=== PATIENT | female | born 1960 | race Hispanic/Latino ===

== ENCOUNTER 2018-06-22 17:04 | Emergency (ER) | payer OTHER ==
[~2018-06-22] VITALS: Ht 154.9 cm; Wt 84.8 kg
--- OUTSIDE RECORDS SUMMARY | 2018-06-22 17:07 | XMS REPORT | Clinical Summary ---
Author Author [facility] Address Unknown Phone Unavailable Care Team Providers Care Room Manager Name Role Phone Nikolay Means PCP Allergies Comments Active Allergy Reactions Severity Noted Date Increased HR Pioglitazone High 12/23/2012 Iodinated Contrast- Oral Anaphylaxis High 01/06/2017 And Iv Dye Medications End Date Status Medication Sig Dispensed Refills Start Date Active pregabalin (LYRICA) 50 MG Take 50 mg by 0 capsule mouth daily. Active enalapril (VASOTEC) 10 MG Take 10 mg by 0 tablet mouth daily. Active citalopram (CELEXA) 20 MG Take 20 mg by 0 tablet mouth daily. Active metFORMIN (GLUCOPHAGE) Take 850 mg 0 850 MG tablet by mouth 3 (three) times daily with meals. Active glyBURIDE (DIABETA) 5 MG Take 10 mg by 0 tablet mouth 2 (two) times daily. Active clobetasol (TEMOVATE) Apply 0 0.05 % ointment topically 2 8 (two) times daily . Active linagliptin (TRADJENTA) 5 Take 1 tablet 30 tablet 0 mg Tab (5 mg total) 8 by mouth daily. 06/04/2018 Discontinued glyBURIDE-metFORMIN Take 2 0 (GLUCOVANCE) 5-500 mg per tablets by tablet mouth 2 (two) times daily with breakfast and dinner. 06/04/2018 Discontinued enalapril (VASOTEC) 5 MG Take 5 mg by 0 tablet mouth daily. 06/04/2018 Discontinued linagliptin 5 mg Tab Take 5 mg by 0 mouth daily. 06/04/2018 Discontinued pregabalin (LYRICA) 75 MG Take 75 mg by 0 capsule mouth 2 (two) times daily. 06/04/2018 Discontinued meloxicam (MOBIC) 15 MG Take 15 mg by 0 tablet mouth daily. 06/04/2018 Discontinued citalopram (CELEXA) 10 MG Take 10 mg by 0 tablet mouth daily. 06/04/2018 Discontinued simvastatin (ZOCOR) 20 MG Take 20 mg by 0 tablet mouth nightly. 06/04/2018 Discontinued aspirin 81 MG EC tablet Take 81 mg by 0 mouth daily. 06/04/2018 Discontinued celecoxib (CELEBREX) 100 Take 100 mg 0 03/18/201 MG capsule by mouth 2 8 (two) times daily. Active Problems Problem Noted Date Chest pain, unspecified type 01/06/2017 Diabetes mellitus 02/28/2016 HTN (hypertension) 02/28/2016 Hypokalemia 02/28/2016 Numbness and tingling 02/27/2016 Encounters Care Team Description Date Type Specialty Juan Kraft Jr., MD Hyperglycemia (Primary Dx); Type 2 diabetes mellitus without complication, without long-term current use of insulin ([facility]) 06/04/2018 Emergency Emergency Medicine 02/25/2018 Emergency Emergency Medicine - 02/26/2018 Benito Cano MD Viral illness (Primary Dx); Chills (without fever); Urinary frequency 02/08/2018 Emergency Emergency Medicine 11/14/2017 Emergency Emergency Medicine after 06/21/2017 Social History Date Tobacco Use Types Packs/Day Years Used Never Smoker Smokeless Tobacco: Never Used Alcohol Use Drinks/Week oz/Week Comments No Sex Assigned at Date Recorded Not on file Industry Job Start Date Occupation Not on file Not on file Not on file Travel End Travel History Travel Start No recent travel history available. Last Filed Vital Signs Time Taken Vital Sign Reading 06/04/2018 11:50 AM CHILD PROTECTIVE INVESTIGATOR Blood Pressure 118/60 06/04/2018 11:50 AM CHILD PROTECTIVE INVESTIGATOR Pulse 65 06/04/2018 11:50 AM CHILD PROTECTIVE INVESTIGATOR Temperature 36.8 C (98.3 F) 06/04/2018 11:50 AM CHILD PROTECTIVE INVESTIGATOR Respiratory Rate 14 06/04/2018 11:50 AM CHILD PROTECTIVE INVESTIGATOR Oxygen Saturation 97% - Inhaled Oxygen - Concentration 06/04/2018 10:57 AM CHILD PROTECTIVE INVESTIGATOR Weight 80.3 kg (177 lb) 02/25/2018 7:09 PM CDT Height 154.9 cm (5' 1") 06/04/2018 10:57 AM CHILD PROTECTIVE INVESTIGATOR Body Mass Index 33.44 Plan of Treatment Not on file Procedures Comments Procedure Name Priority Date/Time Associated Diagnosis CBC W/PLT COUNT & AUTO STAT 06/04/2018 DIFFERENTIAL 11:11 AM CHILD PROTECTIVE INVESTIGATOR BASIC METABOLIC PANEL (7) STAT 06/04/2018 11:11 AM CHILD PROTECTIVE INVESTIGATOR CBC W/PLT COUNT & AUTO STAT 06/04/2018 DIFFERENTIAL 11:11 AM CHILD PROTECTIVE INVESTIGATOR POCT-GLUCOSE METER Routine 06/04/2018 11:04 AM CHILD PROTECTIVE INVESTIGATOR CBC W/PLT COUNT & AUTO STAT 02/25/2018 DIFFERENTIAL 7:44 PM CDT CBC W/PLT COUNT & AUTO STAT 02/25/2018 DIFFERENTIAL 7:44 PM CDT LIPASE STAT 02/25/2018 7:44 PM CDT AMYLASE STAT 02/25/2018 7:44 PM CDT HEPATIC FUNCTION PANEL STAT 02/25/2018 7:44 PM CDT BASIC METABOLIC PANEL (7) STAT 02/25/2018 7:44 PM CDT URINALYSIS W/ MICROSCOPIC STAT 02/08/2018 12:24 PM CDT XR CHEST 1 VIEW STAT 02/08/2018 PORTABLE/BEDSIDE 11:49 AM CDT CBC W/PLT COUNT & AUTO STAT 02/08/2018 DIFFERENTIAL 11:44 AM CDT CBC W/PLT COUNT & AUTO STAT 02/08/2018 DIFFERENTIAL 11:44 AM CDT BASIC METABOLIC PANEL (7) STAT 02/08/2018 11:44 AM CDT after 06/21/2017 Results * CBC with platelet count + automated diff (06/04/2018 11:11 AM CHILD PROTECTIVE INVESTIGATOR) Only the most recent of 3 results within the time period is included. WBC 5.8 3.5 - 10.5 K/L [facility] RBC 4.38 3.93 - 5.22 M/L [facility] Hemoglobin 13.8 11.2 - 15.7 GM/DL [facility] Hematocrit 41.7 34.1 - 44.9 % [facility] MCV 95.2 (H) 79.4 - 94.8 fL [facility] MCH 31.5 25.6 - 32.2 pg [facility] MCHC 33.1 32.2 - 35.5 GM/DL [facility] RDW 12.6 11.7 - 14.4 % [facility] Platelets 183 150 - 450 K/CU MM [facility] MPV 10.9 9.4 - 12.3 fL [facility] nRBC 0 0 - 0 /100 WBC [facility] % Neutros 55 % [facility] % Lymphs 34 % [facility] % Monos 8 % [facility] % Eos 2 % [facility] % Baso 1 % [facility] # Neutros 3.20 1.56 - 6.13 K/L [facility] # Lymphs 2.00 1.18 - 3.74 K/L [facility] # Monos 0.49 (H) 0.24 - 0.36 K/L [facility] # Eos 0.09 0.04 - 0.36 K/L [facility] # Baso 0.05 0.01 - 0.08 K/L [facility] Immature 0 0 - 1 % [facility] Granulocytes-[facility] Specimen Blood - Line, Venous Performing Organization Address City/State/Zipcode Phone Number [address] [phone] [facility] * Basic Metabolic Panel (06/04/2018 11:11 AM CHILD PROTECTIVE INVESTIGATOR) Only the most recent of 3 results within the time period is included. Sodium 131 (L) 136 - 145 meq/L [facility] Potassium 3.7 3.5 - 5.1 meq/L [facility] Chloride 98 98 - 107 meq/L [facility] CO2 24 22 - 29 meq/L [facility] BUN 17 7 - 21 mg/dL [facility] Creatinine 0.81 0.57 - 1.25 mg/dL [facility] Glucose 260 (H) 70 - 105 mg/dL [facility] Calcium 9.1 8.4 - 10.2 mg/dL [facility] EGFR 73Comment: ESTIMATED GFR IS mL/min/1.73 sq m [facility] NOT ACCURATE CREATININE [facility] CLEARANCE IN PREDICTING GLOMERULAR FILTRATION RATE. ESTIMATED GFR IS NOT APPLICABLE FOR DIALYSIS PATIENTS. Specimen Blood - Line, Venous Performing Organization Address City/[facility] Phone Number [address] [address] [phone] [place] [address] * POC-Glucose meter (06/04/2018 11:04 AM CHILD PROTECTIVE INVESTIGATOR) POC-Glucose Meter 283 (H)Comment: TESTED AT 70 - 110 mg/dL [facility] [address] [place] [id number] Specimen Blood Performing Organization Address City/[facility] Phone Number [address] [address] [phone] [place] [address] * Lipase (02/25/2018 7:44 PM CDT) Lipase 71 8 - 78 U/L [facility] Specimen Blood - Arm, Left Performing Organization Address City/[facility]/Zipcode Phone Number [address] [phone] [facility] * Amylase (02/25/2018 7:44 PM CDT) Amylase 55 25 - 125 U/L [facility] Specimen Blood - Arm, Left Performing Organization Address [facility] Phone Number [address] [phone] [facility] * Hepatic function panel (02/25/2018 7:44 PM CDT) Protein, Total 6.9 6.0 - 8.3 gm/dL [facility] Albumin 3.9 3.5 - 5.0 g/dL [facility] Total Bilirubin 0.5 0.2 - 1.2 mg/dL [facility] Bilirubin, Direct 0.2 0.1 - 0.5 mg/dL [facility] Alkaline Phosphatase 130 40 - 150 U/L [facility] AST 116 (H) 5 - 34 U/L [facility] ALT 176 (H) 6 - 55 U/L [facility] Specimen Blood - Arm, Left Performing Organization Address [facility] Phone Number [address] [phone] [facility] * Urinalysis w/Microscopic (02/08/2018 12:24 PM CDT) Color, UA Light Yellow [facility] Clarity, UA Clear [facility] Specific [place], UA 1.010 1.001 - 1.035 [facility] pH, UA 6.0 5.0 - 8.0 [facility] Protein, UA Negative Negative [facility] Glucose, UA >1000 mg/dL (A) Negative [facility] Ketones, UA Negative Negative [facility] Bilirubin, UA Negative Negative [facility] Blood, UA Negative Negative [facility] Nitrite, UA Negative Negative [facility] Leukocytes, UA Negative Negative [facility] Urobilinogen, UA 0.2 0.2 - 1.0 mg/dL [facility] RBC, UA <1 /HPF [facility] WBC, UA <1 /HPF [facility] Squam Epithel, UA 1 /HPF [facility] Specimen Source Urine, Clean Catch [facility] Specimen Urine - Urine, Clean Catch Performing Organization Address City/State/Zipcode Phone Number [facility] [address] [place] [address] MEDICAL CENTER * XR chest 1 view portable / bedside (02/08/2018 11:49 AM CDT) Narrative Performed At FINAL REPORT [facility] Chest, AP view. History: Cough, chills. Comparison: 06/17/2017. Discussion:The cardiomediastinal silhouette and pulmonary vasculature are within normal limits. The lungs are clear without evidence of consolidation or effusion.There are no acute osseous abnormalities. The soft tissues are unremarkable. IMPRESSION: No acute cardiopulmonary abnormality. Signed: Oleg Bartlett MD Report Verified Date/Time:02/08/2018 12:05:33 Reading Location: [address] Radiology Reading Room Procedure Note Interface, External Ris In - 02/08/2018 12:07 PM CDT FINAL REPORT Chest, AP view. History: Cough, chills. Comparison: 06/17/2017. Discussion: The cardiomediastinal silhouette and pulmonary vasculature are within normal limits. The lungs are clear without evidence of consolidation or effusion. There are no acute osseous abnormalities. The soft tissues are unremarkable. IMPRESSION: No acute cardiopulmonary abnormality. Signed: Oleg Bartlett MD Report Verified Date/Time: 02/08/2018 12:05:33 Reading Location: [facility] Radiology Reading Room Performing Organization Address City/State/Zipcode Phone Number GE RIS after 06/21/2017 Insurance Payer Benefit Subscriber ID Type Phone Address Plan / Group MEDICAID - MEDICAID [employer] [id number] xxxxxxxxx Medicaid CARE COMM STAR Contracted PLAN Advance Directives For more information, please contact: [place] [phone] [place] [address] Date Inactivated Comments Code Status Date Activated 01/07/2017 5:06 PM Full Code 01/06/2017 12:33 PM This code status was determined by: Patient 02/28/2016 9:07 PM Full Code 02/27/2016 11:24 PM This code status was determined by: Patient
--- OUTSIDE RECORDS SUMMARY | 2018-06-22 17:08 | XMS REPORT ---
Author Author [facility] Address Unknown Phone Unavailable Care Team Providers Care Housing Management Officer Name Role Phone UNKNOWN, REFFERING PP Unavailable CAITLIN BUSBY Unavailable Unavailable NATHALIA GONZALES Unavailable Unavailable MILKA ROLDAN Unavailable Unavailable VITA SOMERS Unavailable Unavailable OFEMILY, JESSIE BEE Unavailable Unavailable Problems This patient has no known problems. Allergies, Adverse Reactions, Alerts This patient has no known allergies or adverse reactions. Medications This patient has no known medications. Encounters Start Date/Time End Date/Time Encounter Type Admission Type Attending Clinicians Care Facility Care Department Encounter ID 2017-08-03 13:20:00 2017-08-03 13:20:00 Emergency C MILKA ROLDAN [facility] [id number] Results Test Description Test Time Test Comments Text Results Atomic Results Result Comments BASIC METABOLIC PANEL 2018-06-04 11:35:00 SODIUM (BEAKER) (test byee=703) 131 meq/L 136-145 POTASSIUM (BEAKER) (test rukf=041) 3.7 meq/L 3.5-5.1 CHLORIDE (BEAKER) (test zabm=852) 98 meq/L 98-107 CO2 (BEAKER) (test szcg=614) 24 meq/L 22-29 BLOOD UREA NITROGEN (BEAKER) (test caqx=210) 17 mg/dL 7-21 CREATININE (BEAKER) (test nwyh=068) 0.81 mg/dL 0.57-1.25 GLUCOSE RANDOM (BEAKER) (test qrca=826) 260 mg/dL 70-105 CALCIUM (BEAKER) (test frsi=988) 9.1 mg/dL 8.4-10.2 EGFR (BEAKER) (test avqc=0037) 73 mL/min/1.73 sq m ESTIMATED GFR IS NOT ACCURATE CREATININE CLEARANCE IN PREDICTING GLOMERULAR FILTRATION RATE. ESTIMATED GFR IS NOT APPLICABLE FOR DIALYSIS PATIENTS. CBC W/PLT COUNT & AUTO [id number] 11:21:00* Test Item Value Reference Range Comments WHITE BLOOD CELL COUNT (BEAKER) (test gcoq=017) 5.8 K/ L 3.5-10.5 RED BLOOD CELL COUNT (BEAKER) (test ywec=955) 4.38 M/ L 3.93-5.22 HEMOGLOBIN (BEAKER) (test tnik=914) 13.8 GM/DL 11.2-15.7 HEMATOCRIT (BEAKER) (test rmnk=184) 41.7 % 34.1-44.9 MEAN CORPUSCULAR VOLUME (BEAKER) (test zhmw=302) 95.2 fL 79.4-94.8 MEAN CORPUSCULAR HEMOGLOBIN (BEAKER) (test qqyf=661) 31.5 pg 25.6-32.2 MEAN CORPUSCULAR HEMOGLOBIN CONC (BEAKER) (test gkde=699) 33.1 GM/DL 32.2-35.5 RED CELL DISTRIBUTION WIDTH (BEAKER) (test izma=472) 12.6 % 11.7-14.4 PLATELET COUNT (BEAKER) (test eszb=075) 183 K/CU MM 150-450 MEAN PLATELET VOLUME (BEAKER) (test makl=702) 10.9 fL 9.4-12.3 NUCLEATED RED BLOOD CELLS (BEAKER) (test qmid=764) 0 /100 WBC 0-0 NEUTROPHILS RELATIVE PERCENT (BEAKER) (test pbjw=475) 55 % LYMPHOCYTES RELATIVE PERCENT (BEAKER) (test busc=422) 34 % MONOCYTES RELATIVE PERCENT (BEAKER) (test bbvl=181) 8 % EOSINOPHILS RELATIVE PERCENT (BEAKER) (test tifi=556) 2 % BASOPHILS RELATIVE PERCENT (BEAKER) (test pihe=743) 1 % NEUTROPHILS ABSOLUTE COUNT (BEAKER) (test bvhp=184) 3.20 K/ L 1.56-6.13 LYMPHOCYTES ABSOLUTE COUNT (BEAKER) (test sjpf=656) 2.00 K/ L 1.18-3.74 MONOCYTES ABSOLUTE COUNT (BEAKER) (test zkrm=124) 0.49 K/ L 0.24-0.36 EOSINOPHILS ABSOLUTE COUNT (BEAKER) (test zakg=620) 0.09 K/ L 0.04-0.36 BASOPHILS ABSOLUTE COUNT (BEAKER) (test cdkn=695) 0.05 K/ L 0.01-0.08 IMMATURE GRANULOCYTES-RELATIVE PERCENT (BEAKER) (test bhir=6624) 0 % 0-1 POCT-GLUCOSE [id number] 11:05:00* Test Item Value Reference Range Comments POC-GLUCOSE METER (BEAKER) (test slxf=4673) 283 mg/dL 70-110 TESTED AT [facility] [address] [facility] [id number] CBC W/PLT COUNT & AUTO [id number] 20:18:00* Test Item Value Reference Range Comments WHITE BLOOD CELL COUNT (BEAKER) (test sajz=162) 5.5 K/ L 3.5-10.5 RED BLOOD CELL COUNT (BEAKER) (test jbhu=197) 4.22 M/ L 3.93-5.22 HEMOGLOBIN (BEAKER) (test jxyk=731) 13.5 GM/DL 11.2-15.7 HEMATOCRIT (BEAKER) (test vhma=934) 40.0 % 34.1-44.9 MEAN CORPUSCULAR VOLUME (BEAKER) (test wzfr=672) 94.8 fL 79.4-94.8 MEAN CORPUSCULAR HEMOGLOBIN (BEAKER) (test tfut=505) 32.0 pg 25.6-32.2 MEAN CORPUSCULAR HEMOGLOBIN CONC (BEAKER) (test opnm=185) 33.8 GM/DL 32.2-35.5 RED CELL DISTRIBUTION WIDTH (BEAKER) (test vpwn=714) 12.4 % 11.7-14.4 PLATELET COUNT (BEAKER) (test tfrg=905) 180 K/CU MM 150-450 MEAN PLATELET VOLUME (BEAKER) (test acjj=087) 11.3 fL 9.4-12.3 NUCLEATED RED BLOOD CELLS (BEAKER) (test esbp=042) 0 /100 WBC 0-0 NEUTROPHILS RELATIVE PERCENT (BEAKER) (test zbkg=044) 46 % LYMPHOCYTES RELATIVE PERCENT (BEAKER) (test wocy=291) 44 % MONOCYTES RELATIVE PERCENT (BEAKER) (test ezqr=001) 7 % EOSINOPHILS RELATIVE PERCENT (BEAKER) (test dsmm=367) 2 % BASOPHILS RELATIVE PERCENT (BEAKER) (test tefz=845) 1 % NEUTROPHILS ABSOLUTE COUNT (BEAKER) (test hflf=685) 2.53 K/ L 1.56-6.13 LYMPHOCYTES ABSOLUTE COUNT (BEAKER) (test qjur=550) 2.43 K/ L 1.18-3.74 MONOCYTES ABSOLUTE COUNT (BEAKER) (test blbx=699) 0.37 K/ L 0.24-0.36 EOSINOPHILS ABSOLUTE COUNT (BEAKER) (test tkhs=461) 0.10 K/ L 0.04-0.36 BASOPHILS ABSOLUTE COUNT (BEAKER) (test dtpz=161) 0.03 K/ L 0.01-0.08 IMMATURE GRANULOCYTES-RELATIVE PERCENT (BEAKER) (test xasg=0802) 0 % 0-1 [id number] 20:16:00* Test Item Value Reference Range Comments LIPASE (BEAKER) (test fchk=019) 71 U/L 8-78 [id number] 20:16:00* Test Item Value Reference Range Comments AMYLASE (BEAKER) (test pvrf=585) 55 U/L 25-125 BASIC METABOLIC [id number] 20:16:00* Test Item Value Reference Range Comments SODIUM (BEAKER) (test blzs=655) 135 meq/L 136-145 POTASSIUM (BEAKER) (test zkea=773) 3.6 meq/L 3.5-5.1 CHLORIDE (BEAKER) (test zzpv=358) 100 meq/L 98-107 CO2 (BEAKER) (test ejco=184) 28 meq/L 22-29 BLOOD UREA NITROGEN (BEAKER) (test ksdx=226) 17 mg/dL 7-21 CREATININE (BEAKER) (test napy=148) 0.74 mg/dL 0.57-1.25 GLUCOSE RANDOM (BEAKER) (test xlqt=527) 259 mg/dL 70-105 CALCIUM (BEAKER) (test yipf=938) 8.9 mg/dL 8.4-10.2 EGFR (BEAKER) (test luab=2995) 81 mL/min/1.73 sq m ESTIMATED GFR IS NOT ACCURATE CREATININE CLEARANCE IN PREDICTING GLOMERULAR FILTRATION RATE. ESTIMATED GFR IS NOT APPLICABLE FOR DIALYSIS PATIENTS. HEPATIC FUNCTION [id number] 20:16:00* Test Item Value Reference Range Comments TOTAL PROTEIN (BEAKER) (test zxgg=361) 6.9 gm/dL 6.0-8.3 ALBUMIN (BEAKER) (test sixf=5689) 3.9 g/dL 3.5-5.0 BILIRUBIN TOTAL (BEAKER) (test csso=412) 0.5 mg/dL 0.2-1.2 BILIRUBIN DIRECT (BEAKER) (test pwno=447) 0.2 mg/dL 0.1-0.5 ALKALINE PHOSPHATASE (BEAKER) (test prdd=523) 130 U/L 40-150 AST (SGOT) (BEAKER) (test zggv=323) 116 U/L 5-34 ALT (SGPT) (BEAKER) (test cmcr=720) 176 U/L 6-55 URINALYSIS W/ [id number] 12:46:00* Test Item Value Reference Range Comments COLOR (BEAKER) (test sutx=978) Light Yellow CLARITY (BEAKER) (test cteb=324) Clear SPECIFIC GRAVITY UA (BEAKER) (test pate=085) 1.010 1.001-1.035 PH UA (BEAKER) (test cpju=717) 6.0 5.0-8.0 PROTEIN UA (BEAKER) (test ratr=322) Negative Negative GLUCOSE UA (BEAKER) (test bhig=918) >1000 mg/dL Negative KETONES UA (BEAKER) (test zgfy=262) Negative Negative BILIRUBIN UA (BEAKER) (test kqhv=979) Negative Negative BLOOD UA (BEAKER) (test pqjf=273) Negative Negative NITRITE UA (BEAKER) (test rksz=013) Negative Negative LEUKOCYTE ESTERASE UA (BEAKER) (test tkgx=338) Negative Negative UROBILINOGEN UA (BEAKER) (test epos=813) 0.2 mg/dL 0.2-1.0 RBC UA (BEAKER) (test qiqe=592) < /HPF WBC UA (BEAKER) (test kdff=063) < /HPF SQUAMOUS EPITHELIAL (BEAKER) (test zefk=660) 1 /HPF SOURCE(BEAKER) (test pbjt=5017) Urine, Clean Catch BASIC METABOLIC [id number] 12:15:00* Test Item Value Reference Range Comments SODIUM (BEAKER) (test djms=528) 132 meq/L 136-145 POTASSIUM (BEAKER) (test epig=296) 3.9 meq/L 3.5-5.1 CHLORIDE (BEAKER) (test siia=321) 101 meq/L 98-107 CO2 (BEAKER) (test msod=355) 23 meq/L 22-29 BLOOD UREA NITROGEN (BEAKER) (test wijs=546) 15 mg/dL 7-21 CREATININE (BEAKER) (test mwmq=853) 0.79 mg/dL 0.57-1.25 GLUCOSE RANDOM (BEAKER) (test imcj=023) 252 mg/dL 70-105 CALCIUM (BEAKER) (test owrr=751) 9.0 mg/dL 8.4-10.2 EGFR (BEAKER) (test kpuh=4454) 75 mL/min/1.73 sq m ESTIMATED GFR IS NOT ACCURATE CREATININE CLEARANCE IN PREDICTING GLOMERULAR FILTRATION RATE. ESTIMATED GFR IS NOT APPLICABLE FOR DIALYSIS PATIENTS. RAD, CHEST, 1 VIEW, NON [id number] 12:05:00Reason for exam:->Cough, chillsIs the patient ?->NoShould this be performed at the bedside?->YesFINAL REPORT Chest, AP view. History: Cough, chills. Co mparison: 06/17/2017. Discussion: The cardiomediastinal silhouette and pulmonar y vasculature are within normal limits. The lungs are clear without evidence of consolidation or effusion. There are no acute osseous abnormalities. The soft t issues are unremarkable. IMPRESSION: No acute cardiopulmonary abnormality. Sign ed: Oleg [place] Verified Date/Time: 02/08/2018 12:05:33 Reading Lo cation: OQMT 10th [facility] Radiology Reading Room W/PLT COUNT & AUTO DIFFERENTIAL 2018-02-08 11:58:00* Test Item Value Reference Range Comments WHITE BLOOD CELL COUNT (BEAKER) (test lcjs=235) 4.9 K/ L 3.5-10.5 RED BLOOD CELL COUNT (BEAKER) (test wlxw=762) 4.20 M/ L 3.93-5.22 HEMOGLOBIN (BEAKER) (test fspu=217) 13.4 GM/DL 11.2-15.7 HEMATOCRIT (BEAKER) (test oxnd=300) 40.2 % 34.1-44.9 MEAN CORPUSCULAR VOLUME (BEAKER) (test pqbj=653) 95.7 fL 79.4-94.8 MEAN CORPUSCULAR HEMOGLOBIN (BEAKER) (test nieg=527) 31.9 pg 25.6-32.2 MEAN CORPUSCULAR HEMOGLOBIN CONC (BEAKER) (test vftw=236) 33.3 GM/DL 32.2-35.5 RED CELL DISTRIBUTION WIDTH (BEAKER) (test benw=682) 12.4 % 11.7-14.4 PLATELET COUNT (BEAKER) (test byls=377) 193 K/CU MM 150-450 MEAN PLATELET VOLUME (BEAKER) (test ikwm=462) 11.2 fL 9.4-12.3 NUCLEATED RED BLOOD CELLS (BEAKER) (test cdkn=834) 0 /100 WBC 0-0 NEUTROPHILS RELATIVE PERCENT (BEAKER) (test usxb=770) 43 % LYMPHOCYTES RELATIVE PERCENT (BEAKER) (test dsli=252) 46 % MONOCYTES RELATIVE PERCENT (BEAKER) (test rfso=996) 8 % EOSINOPHILS RELATIVE PERCENT (BEAKER) (test uioh=966) 2 % BASOPHILS RELATIVE PERCENT (BEAKER) (test hhuh=363) 1 % NEUTROPHILS ABSOLUTE COUNT (BEAKER) (test uplm=263) 2.12 K/ L 1.56-6.13 LYMPHOCYTES ABSOLUTE COUNT (BEAKER) (test mygc=074) 2.24 K/ L 1.18-3.74 MONOCYTES ABSOLUTE COUNT (BEAKER) (test cfhh=645) 0.38 K/ L 0.24-0.36 EOSINOPHILS ABSOLUTE COUNT (BEAKER) (test omnt=673) 0.10 K/ L 0.04-0.36 BASOPHILS ABSOLUTE COUNT (BEAKER) (test pbmc=753) 0.04 K/ L 0.01-0.08 IMMATURE GRANULOCYTES-RELATIVE PERCENT (BEAKER) (test ozsz=6656) 0 % 0-1 CK [id number] 14:44:00* Test Item Value Reference Range Comments CK (test code=CK) 69 26-192 CK performed on Integra 400 CKMB (test code=CKMB) <1.0 ng/mL 0.0-4.3 CKMB% (test code=CKMBP) No Calc % Unable to calculate due to one or more values out of test measurement range. Comprehensive Metabolic [id number] 14:43:00* Test Item Value Reference Range Comments Sodium (test code=NA) 132 mmol/L 135-145 Potassium (test code=K) 3.8 mmol/L 3.5-5.1 Chloride (test code=CL) 99 mmol/L 98-105 Carbon Dioxide (test code=CO2) 23 mmol/L 22-29 Anion Gap (test code=AGAP) 10 mmol/L 7-16 Glucose (test code=GLU) 224 mg/dL 70-115 Blood Urea Nitrogen (test code=BUN) 17 mg/dL 6-20 Creatinine (test code=CREAT) 0.7 mg/dL 0.5-0.9 BUN/Creatinine Ratio (test code=BCRATIO) 24.3 Calcium (test code=CA) 9.3 mg/dL 8.3-10.5 Prot Total (test code=TP) 6.6 g/dL 6.4-8.3 Albumin (test code=ALB) 4.2 g/dL 3.5-5.2 A/G Ratio (test code=AGRATIO) 1.8 Ratio Globulin (test code=GLOB) 2.4 2.9-3.1 Bili Total (test code=TBIL) 0.6 mg/dL 0.1-0.9 Alk Phos (test code=APHOS) 92 U/L 35-104 AST (test code=AST) 104 U/L 1-32 ALT (test code=ALT) 123 U/L 1-33 Estimated GFR (test code=GFR) >60 mL/min/1.73m2 eGFR (estimated Glomerular Filtration Rate) is an estimated value,calculated from the patient's serum creatinine using the MDRD equation.It is NOT the patient's actual GFR. The eGFR provides a more clinicallyuseful measure of kidney disease than serum creatinine alone.This calculation takes sex and race into account, if the informationis provided. If the race is not provided, and the patient isAfrican-[place], multiply by 1.212. If sex is not provided, and thepatient is female, multiply by 0.742. Results for patients <18 years ofage have not been validated by the MDRD study and should be interpretedwith caution.eGFR Result Interpretation:eGFR > or=60 is in the Normal RangeeGFR < 60 may mean kidney diseaseeGFR < 15 may mean kidney failureRanges recommended by the National Kidney Foundat ion,http://nkdep.nih.gov CK [id number] 14:43:00* Test Item Value Reference Range Comments CK (test code=CK) 69 U/L 26-192 Urinalysis [id number] 14:38:00* Test Item Value Reference Range Comments Color (test code=COLOR) Yellow Yellow,Straw,Pl yellow Clarity (test code=CLAR) Clear Clear Specific [place] (test code=SPGR) 1.015 1.001-1.035 pH (test code=PH) 6.0 5.0-9.0 Ketone (test code=KET) Negative Negative Glucose (test code=GLUCUR) 4+ Negative Protein (test code=PROT) Negative Negative Bilirubin (test code=BILI) Negative Negative Occult Blood (test code=UDOB) Negative Negative Urobilinogen (test code=UROB) 0.2 0.2-1.0 Nitrite (test code=NIT) Negative Negative Leuk Esterase (test code=LEUK) Negative Negative Micros Exam (test code=MEXAM) Indicated Epithelial Cells (test code=EPI) 0-2 /HPF 0-30 WBC, Urine (test code=UWBC) 0-2 /LPF 0-5 RBC, Urine (test code=URBC) None Seen /LPF 0-5 Bacteria (test code=BACT) None /LPF Troponin [id number] 14:37:00* Test Item Value Reference Range Comments Troponin I (test code=TNI) <0.05 ng/mL 0.00-0.04 Values of <0.05 ng/mL are considered negative. Values 0.40 ng/mL are considered indicative of myocardial injury. Values 0.05 to 0.39 ng/mL are indeterminate. Prothrombin [id number] 14:36:00* Test Item Value Reference Range Comments PT (test code=PT) 10.0 seconds 9.6-13.1 INR (test code=INR) 1.00 Ratio 0.6-1.2 Partial Thromboplastin [id number] 14:36:00* Test Item Value Reference Range Comments aPTT (test code=PTT) 22.0 seconds 22.4-33.2 CBC with [id number] 14:21:00* Test Item Value Reference Range Comments WBC (test code=WBC) 6.8 K/cumm 4.4-10.5 RBC (test code=RBC) 4.18 M/cumm 3.75-5.20 Hemoglobin (test code=HGB) 13.2 gm/dL 12.2-14.8 Hematocrit (test code=HCT) 38.4 % 36.5-44.4 MCV (test code=MCV) 91.9 fL 80-100 MCH (test code=MCH) 31.6 pg 27.0-32.5 MCHC (test code=MCHC) 34.4 % 32.0-37.5 RDW (test code=RDW) 12.9 % 11.5-14.5 Platelet Count (test code=PLTCT) 202 K/cumm 140-440 MPV (test code=MPV) 10.7 fL Diff Method (test code=DIFFM) Auto Neutrophil (test code=NEUT) 60.2 % 36-70 Lymphocyte (test code=LYMPH) 30.7 % 12-44 Monocyte (test code=MONO) 6.9 % 0-11 Eosinophil (test code=EOS) 1.9 % 0-7 Basophil (test code=BASO) 0.3 % 0-2 Neutro Abs (test code=ANEUT) 4.1 K/cumm 1.6-7.4 Lymph Abs (test code=ALYMPH) 2.1 K/cumm 0.5-4.6 [place] Abs (test code=AMONO) 0.5 K/cumm 0.0-1.2 Eos Abs (test code=AEOS) 0.13 K/cumm 0.00-0.74 Baso Abs (test code=ABASO) 0.0 K/cumm 0.00-0.21 XR-H CHEST 1 [id number] 14:01:57CHEST 1 VIEWCLINICAL INFORMATION: Left- sided weaknessCOMPARISON: Chest radiograph dated July 17, 2005FINDINGS:The lungs are well-expanded and clear. No airspace consolidation isseen. No pneumothorax or pleural effusion is present. The cardiacsilhouette is normal in size. Atherosclerotic calcifications are seenin the aorta. The bones are grossly intact.IMPRESSION:No acute cardiopulmonary finding.LOCATION: [id number] HEAD OR BRAIN WO [id number] 13:59:37CT HEAD WITHOUT CONTRASTLOCATION: R16 INDICATION: L sided weaknessCOMPARISON: NoneTECHNIQUE: Axial scans were obtained from skull base to the vertex.Coronal and sagittal reconstructions obtained from the axial data. One or more of the following dose reduction techniques were used:Automated exposure control, adjustment of the mA and/or kV according topatient size, and/or utilization of iterative reconstruction techniqueFINDINGS: There is no evidence of hemorrhage or hydrocephalus.There is no mass effect or midline shift. There is no abnormal intra nor extra-axial fluid collection. The calvarium is intact without fracture. The visualized paranasal sinuses and mastoids are clear. IMPRESSION: No intracranial h emorrhage. MR is recommended if there are clinicalsymptoms of acute stroke. CREATINE KINASE (CK), TOTAL AND [id number] 19:16:00* Test Item Value Reference Range Comments CREATINE KINASE TOTAL (BEAKER) (test yctx=210) 61 U/L 29-200 CREATINE KINASE-MB (BEAKER) (test gelw=058) 1.2 ng/mL 0.0-6.6 CREATINE KINASE-MB INDEX (BEAKER) (test qevs=413) 2.0 % CK-MB Reference Range:<6.7 Normal6.7-10.0 Borderline>10.0 Abnormal TROPONIN [id number] 19:16:00* Test Item Value Reference Range Comments TROPONIN I (BEAKER) (test xfim=522) < ng/mL 0.00-0.03 Troponin I (TnI) levels must be interpreted in the context of the presenting sym ptoms and the clinical findings. Elevated TnI levels indicate myocardial damage, but are not specific for ischemic heart disease. Elevated TnI levels are seen in patients with other cardiac conditions (including myocarditis and congestive h eart failure), and slight TnI elevations occur in patients with other conditions , including sepsis, renal failure, acidosis, acute neurological disease, and per sistent tachyarrhythmia.B-TYPE NATRIURETIC FACTOR (BNP)2017-06-17 19:15:00* Test Item Value Reference Range Comments B-TYPE NATRIURETIC PEPTIDE (BEAKER) (test czsi=400) 38 pg/mL 0-100 [id number] 19:08:00* Test Item Value Reference Range Comments MAGNESIUM (BEAKER) (test ccqf=302) 1.6 mg/dL 1.6-2.6 BASIC METABOLIC [id number] 19:08:00* Test Item Value Reference Range Comments SODIUM (BEAKER) (test rnas=876) 135 meq/L 136-145 POTASSIUM (BEAKER) (test nvui=018) 3.4 meq/L 3.5-5.1 CHLORIDE (BEAKER) (test ugzf=559) 102 meq/L 98-107 CO2 (BEAKER) (test njuy=111) 25 meq/L 22-29 BLOOD UREA NITROGEN (BEAKER) (test yyct=711) 14 mg/dL 7-21 CREATININE (BEAKER) (test qvez=267) 0.68 mg/dL 0.57-1.25 GLUCOSE RANDOM (BEAKER) (test lbej=192) 178 mg/dL 70-105 CALCIUM (BEAKER) (test iilx=521) 9.1 mg/dL 8.4-10.2 EGFR (BEAKER) (test rpew=0342) 90 mL/min/1.73 sq m ESTIMATED GFR IS NOT ACCURATE CREATININE CLEARANCE IN PREDICTING GLOMERULAR FILTRATION RATE. ESTIMATED GFR IS NOT APPLICABLE FOR DIALYSIS PATIENTS. [id number] 18:50:00* Test Item Value Reference Range Comments PROTIME (BEAKER) (test waxn=717) 13.2 seconds 11.7-14.7 INR (BEAKER) (test jemb=373) 1.0 <=5.9 PARTIAL THROMBOPLASTIN TIME (BEAKER) (test uuty=622) 26.5 seconds 22.5-36.0 RECOMMENDED COUMADIN/WARFARIN INR THERAPY RANGESSTANDARD DOSE: 2.0 - 3.0 Inclu juanis: PROPHYLAXIS for venous thrombosis, systemic embolization; TREATMENT for augusto ous thrombosis and/or pulmonary embolus.HIGH RISK: Target INR is 2.5-3.5 for pat ients with mechanical heart valves.CBC W/PLT COUNT & AUTO [id number] 18:44:00* Test Item Value Reference Range Comments WHITE BLOOD CELL COUNT (BEAKER) (test spcq=432) 7.4 K/ L 3.5-10.5 RED BLOOD CELL COUNT (BEAKER) (test daja=781) 4.40 M/ L 3.93-5.22 HEMOGLOBIN (BEAKER) (test cxho=018) 14.0 GM/DL 11.2-15.7 HEMATOCRIT (BEAKER) (test tzxp=707) 40.8 % 34.1-44.9 MEAN CORPUSCULAR VOLUME (BEAKER) (test lkrp=706) 92.7 fL 79.4-94.8 MEAN CORPUSCULAR HEMOGLOBIN (BEAKER) (test yuov=732) 31.8 pg 25.6-32.2 MEAN CORPUSCULAR HEMOGLOBIN CONC (BEAKER) (test avch=385) 34.3 GM/DL 32.2-35.5 RED CELL DISTRIBUTION WIDTH (BEAKER) (test nzrc=201) 12.4 % 11.7-14.4 PLATELET COUNT (BEAKER) (test rfdu=092) 195 K/CU MM 150-450 MEAN PLATELET VOLUME (BEAKER) (test eqsm=277) 11.5 fL 9.4-12.3 NUCLEATED RED BLOOD CELLS (BEAKER) (test ylet=035) 0 /100 WBC 0-0 NEUTROPHILS RELATIVE PERCENT (BEAKER) (test rtld=857) 55 % LYMPHOCYTES RELATIVE PERCENT (BEAKER) (test cbjh=095) 36 % MONOCYTES RELATIVE PERCENT (BEAKER) (test asgx=872) 7 % EOSINOPHILS RELATIVE PERCENT (BEAKER) (test ofrw=606) 2 % BASOPHILS RELATIVE PERCENT (BEAKER) (test ecfh=222) 1 % NEUTROPHILS ABSOLUTE COUNT (BEAKER) (test okhb=125) 4.05 K/ L 1.56-6.13 LYMPHOCYTES ABSOLUTE COUNT (BEAKER) (test qlxn=401) 2.64 K/ L 1.18-3.74 MONOCYTES ABSOLUTE COUNT (BEAKER) (test flfx=901) 0.53 K/ L 0.24-0.36 EOSINOPHILS ABSOLUTE COUNT (BEAKER) (test gnrs=021) 0.12 K/ L 0.04-0.36 BASOPHILS ABSOLUTE COUNT (BEAKER) (test ailh=408) 0.04 K/ L 0.01-0.08 IMMATURE GRANULOCYTES-RELATIVE PERCENT (BEAKER) (test aqmn=0233) 0 % 0-1 RAD, CHEST, 1 VIEW, NON [id number] 18:24:00Reason for exam:->CHEST PAINIs the patient ?->NoFINAL REPORT Chest, 1 view. History: Chest pain. Comparison: 01/06/2017. Discussion: The trachea is midline. The lungs are symmetrically expanded without evidence of focal consolidation, pneumothorax, or significant pleural effusion. The cardiomediastinal silhouette and pulmonary vasculature are within normal limits. No acute osseous abnormalities identified. The soft tissues are unremarkable. IMPRESSION: No acute cardiopulmonary process identified. Signed: Anthony Abreu MDReport Verified Date/Time: 06/17/2017 18:24:01 Reading Location: [facility] [id number] Consult Reading Room -GLUCOSE [id number] 13:27:00* Test Item Value Reference Range Comments POC-GLUCOSE METER (BEAKER) (test hhgs=5275) 157 mg/dL 70-110 TESTED AT [facility] [address] [address] [id number] CREATINE KINASE (CK), TOTAL AND [id number] 00:24:00* Test Item Value Reference Range Comments CREATINE KINASE TOTAL (BEAKER) (test eolp=881) 44 U/L 29-200 CREATINE KINASE-MB (BEAKER) (test vzor=787) 0.6 ng/mL 0.0-6.6 CREATINE KINASE-MB INDEX (BEAKER) (test ynvp=530) 1.4 % Effective 05/16/2014: CK-MB Reference Range ChangeNew: 0.0-6.6 Previous: 0.0- 4.9CK-MB Reference Range:<6.7 Normal6.7-10.0 Borderline>10.0 Abnormal TROPONIN [id number] 00:24:00* Test Item Value Reference Range Comments TROPONIN I (BEAKER) (test sjjs=145) < ng/mL 0.00-0.03 Effective 05/16/2014: Reference Range ChangeNew: 0.00-0.03 Previous 0.00-0.15T roponin I (TnI) levels must be interpreted in the context of the presenting symp toms and the clinical findings. Elevated TnI levels indicate myocardial damage, but are not specific for ischemic heart disease. Elevated TnI levels are seen in patients with other cardiac conditions (including myocarditis and congestive he art failure), and slight TnI elevations occur in patients with other conditions, including sepsis, renal failure, acidosis, acute neurological disease, and pers istent tachyarrhythmia.POCT-GLUCOSE [id number] 21:13:00* Test Item Value Reference Range Comments POC-GLUCOSE METER (BEAKER) (test xyzj=0308) 347 mg/dL 70-110 Notified NOHEMY RAMÍREZ/TESTED AT [facility] [address] [address] CREATINE KINASE (CK), TOTAL AND [id number] 18:39:00* Test Item Value Reference Range Comments CREATINE KINASE TOTAL (BEAKER) (test prbo=951) 47 U/L 29-200 CREATINE KINASE-MB (BEAKER) (test dpoi=330) 0.8 ng/mL 0.0-6.6 CREATINE KINASE-MB INDEX (BEAKER) (test lkza=781) 1.7 % Effective 05/16/2014: CK-MB Reference Range ChangeNew: 0.0-6.6 Previous: 0.0- 4.9CK-MB Reference Range:<6.7 Normal6.7-10.0 Borderline>10.0 Abnormal TROPONIN [id number] 18:39:00* Test Item Value Reference Range Comments TROPONIN I (BEAKER) (test cnfs=548) < ng/mL 0.00-0.03 Effective 05/16/2014: Reference Range ChangeNew: 0.00-0.03 Previous 0.00-0.15T roponin I (TnI) levels must be interpreted in the context of the presenting symp toms and the clinical findings. Elevated TnI levels indicate myocardial damage, but are not specific for ischemic heart disease. Elevated TnI levels are seen in patients with other cardiac conditions (including myocarditis and congestive he art failure), and slight TnI elevations occur in patients with other conditions, including sepsis, renal failure, acidosis, acute neurological disease, and pers istent tachyarrhythmia.POCT-GLUCOSE [id number] 17:29:00* Test Item Value Reference Range Comments POC-GLUCOSE METER (BEAKER) (test ocss=6092) 193 mg/dL 70-110 TESTED AT [facility] [address] [address] [address] POCT-GLUCOSE [id number] 13:41:00* Test Item Value Reference Range Comments POC-GLUCOSE METER (BEAKER) (test ljyn=6815) 153 mg/dL 70-110 TESTED AT [facility] [address] [facility] [address] CREATINE KINASE (CK), TOTAL AND [id number] 10:34:00* Test Item Value Reference Range Comments CREATINE KINASE TOTAL (BEAKER) (test oeuq=090) 55 U/L 29-200 CREATINE KINASE-MB (BEAKER) (test nfts=802) 0.9 ng/mL 0.0-6.6 CREATINE KINASE-MB INDEX (BEAKER) (test lbvo=931) 1.6 % Effective 05/16/2014: CK-MB Reference Range ChangeNew: 0.0-6.6 Previous: 0.0- 4.9CK-MB Reference Range:<6.7 Normal6.7-10.0 Borderline>10.0 Abnormal TROPONIN [id number] 10:34:00* Test Item Value Reference Range Comments TROPONIN I (BEAKER) (test gwyq=154) < ng/mL 0.00-0.03 Effective 05/16/2014: Reference Range ChangeNew: 0.00-0.03 Previous 0.00-0.15T roponin I (TnI) levels must be interpreted in the context of the presenting symp toms and the clinical findings. Elevated TnI levels indicate myocardial damage, but are not specific for ischemic heart disease. Elevated TnI levels are seen in patients with other cardiac conditions (including myocarditis and congestive he art failure), and slight TnI elevations occur in patients with other conditions, including sepsis, renal failure, acidosis, acute neurological disease, and pers istent tachyarrhythmia.[id number] 10:33:00* Test Item Value Reference Range Comments PROTIME (VERNAKER) (test yhsl=828) 13.9 seconds 11.7-14.7 INR (BEAKER) (test vamj=014) 1.1 <=5.9 PARTIAL THROMBOPLASTIN TIME (BEAKER) (test wsug=123) 27.5 seconds 22.5-36.0 RECOMMENDED COUMADIN/WARFARIN INR THERAPY RANGESSTANDARD DOSE: 2.0 - 3.0 Inclu juanis: PROPHYLAXIS for venous thrombosis, systemic embolization; TREATMENT for augusto ous thrombosis and/or pulmonary embolus.HIGH RISK: Target INR is 2.5-3.5 for pat ients with mechanical heart valves.B-TYPE NATRIURETIC FACTOR (BNP)2017-01-06 10:33:00* Test Item Value Reference Range Comments B-TYPE NATRIURETIC PEPTIDE (BEAKER) (test rrjc=382) 99 pg/mL 0-100 [id number] 10:27:00* Test Item Value Reference Range Comments MAGNESIUM (BEAKER) (test hvqa=673) 1.7 mg/dL 1.6-2.6 BASIC METABOLIC [id number] 10:27:00* Test Item Value Reference Range Comments SODIUM (BEAKER) (test twnw=212) 136 meq/L 136-145 POTASSIUM (BEAKER) (test yfvo=629) 4.0 meq/L 3.5-5.1 CHLORIDE (BEAKER) (test cocu=582) 102 meq/L 98-107 CO2 (BEAKER) (test zxnr=202) 25 meq/L 22-29 BLOOD UREA NITROGEN (BEAKER) (test dmjx=475) 14 mg/dL 7-21 CREATININE (BEAKER) (test npow=484) 0.74 mg/dL 0.57-1.25 GLUCOSE RANDOM (BEAKER) (test bcxx=375) 205 mg/dL 70-105 CALCIUM (BEAKER) (test zxlg=546) 9.2 mg/dL 8.4-10.2 EGFR (BEAKER) (test kory=8723) 81 mL/min/1.73 sq m ESTIMATED GFR IS NOT ACCURATE CREATININE CLEARANCE IN PREDICTING GLOMERULAR FILTRATION RATE. ESTIMATED GFR IS NOT APPLICABLE FOR DIALYSIS PATIENTS. CBC W/PLT COUNT & AUTO [id number] 10:07:00* Test Item Value Reference Range Comments WHITE BLOOD CELL COUNT (BEAKER) (test gopg=219) 4.8 K/ L 4.0-10.0 RED BLOOD CELL COUNT (BEAKER) (test cplf=597) 4.07 M/ L 4.00-5.00 HEMOGLOBIN (BEAKER) (test lrqv=400) 13.4 GM/DL 12.0-15.0 HEMATOCRIT (BEAKER) (test sbpw=709) 39.9 % 36.0-45.0 MEAN CORPUSCULAR VOLUME (BEAKER) (test miau=841) 98.1 fL 82.0-99.0 MEAN CORPUSCULAR HEMOGLOBIN (BEAKER) (test ohou=703) 33.0 pg 27.0-33.0 MEAN CORPUSCULAR HEMOGLOBIN CONC (BEAKER) (test imjr=612) 33.6 GM/DL 32.0-36.0 RED CELL DISTRIBUTION WIDTH (BEAKER) (test uvbv=416) 11.7 % 10.3-14.2 PLATELET COUNT (BEAKER) (test pwln=837) 189 K/CU MM 150-430 MEAN PLATELET VOLUME (BEAKER) (test qgtx=393) 8.0 fL 6.5-10.5 NUCLEATED RED BLOOD CELLS (BEAKER) (test jqbq=143) 0 /100 WBC 0-0 NEUTROPHILS RELATIVE PERCENT (BEAKER) (test nfge=616) 54 % LYMPHOCYTES RELATIVE PERCENT (BEAKER) (test ddvj=286) 37 % MONOCYTES RELATIVE PERCENT (BEAKER) (test vfoj=734) 7 % EOSINOPHILS RELATIVE PERCENT (BEAKER) (test xlji=690) 2 % BASOPHILS RELATIVE PERCENT (BEAKER) (test zaoq=306) 1 % NEUTROPHILS ABSOLUTE COUNT (BEAKER) (test wqqa=115) 2.58 K/ L 1.80-8.00 LYMPHOCYTES ABSOLUTE COUNT (BEAKER) (test hgiw=868) 1.77 K/ L 1.48-4.50 MONOCYTES ABSOLUTE COUNT (BEAKER) (test ctsv=306) 0.35 K/ L 0.00-1.30 EOSINOPHILS ABSOLUTE COUNT (BEAKER) (test gnhu=830) 0.09 K/ L 0.00-0.50 BASOPHILS ABSOLUTE COUNT (BEAKER) (test djtu=923) 0.03 K/ L 0.00-0.20 0.00POCT-GLUCOSE [id number] 00:36:00* Test Item Value Reference Range Comments POC-GLUCOSE METER (BEAKER) (test iwxx=0210) 165 mg/dL 70-110 TESTED AT [facility] [address] [facility] [id number] URINALYSIS W/ [id number] 19:48:00* Test Item Value Reference Range Comments COLOR (BEAKER) (test ahxi=829) Yellow CLARITY (BEAKER) (test bhtx=369) Clear SPECIFIC GRAVITY UA (BEAKER) (test wyqa=073) 1.015 1.001-1.035 PH UA (BEAKER) (test oolx=909) 5.5 5.0-8.0 PROTEIN UA (BEAKER) (test oyjp=438) Negative Negative GLUCOSE UA (BEAKER) (test ruec=240) 50 mg/dL Negative KETONES UA (BEAKER) (test royn=345) Trace Negative BILIRUBIN UA (BEAKER) (test qwmm=560) Negative Negative BLOOD UA (BEAKER) (test sdwp=966) Negative Negative NITRITE UA (BEAKER) (test lzej=334) Negative Negative LEUKOCYTE ESTERASE UA (BEAKER) (test ilxr=395) Negative Negative UROBILINOGEN UA (BEAKER) (test djtu=515) 0.2 mg/dL 0.2-1.0 RBC UA (BEAKER) (test vdfs=807) 1 /HPF WBC UA (BEAKER) (test vuxt=728) < /HPF BACTERIA (BEAKER) (test nzhv=617) Rare MUCUS (BEAKER) (test urei=1362) Rare SQUAMOUS EPITHELIAL (BEAKER) (test kxdh=586) 2 /HPF SOURCE(BEAKER) (test ifle=6442) Urine, Voided KETONE, [id number] 19:48:00* Test Item Value Reference Range Comments KETONES, BLOOD (BEAKER) (test eier=5148) 0.2 mmol/L <0.4 [id number] 19:11:00* Test Item Value Reference Range Comments LIPASE (BEAKER) (test aerc=674) 59 U/L 8-78 [id number] 19:11:00* Test Item Value Reference Range Comments AMYLASE (BEAKER) (test wrsn=774) 48 U/L 25-125 BASIC METABOLIC [id number] 19:11:00* Test Item Value Reference Range Comments SODIUM (BEAKER) (test fovd=441) 136 meq/L 136-145 POTASSIUM (BEAKER) (test bqcf=761) 4.0 meq/L 3.5-5.1 CHLORIDE (BEAKER) (test ykur=736) 101 meq/L 98-107 CO2 (BEAKER) (test cslc=616) 26 meq/L 22-29 BLOOD UREA NITROGEN (BEAKER) (test aakc=055) 21 mg/dL 7-21 CREATININE (BEAKER) (test wznn=309) 0.80 mg/dL 0.57-1.25 GLUCOSE RANDOM (BEAKER) (test ovjj=437) 158 mg/dL 70-105 CALCIUM (BEAKER) (test mbgw=908) 9.1 mg/dL 8.4-10.2 EGFR (BEAKER) (test mldm=7682) 74 mL/min/1.73 sq m ESTIMATED GFR IS NOT ACCURATE CREATININE CLEARANCE IN PREDICTING GLOMERULAR FILTRATION RATE. ESTIMATED GFR IS NOT APPLICABLE FOR DIALYSIS PATIENTS. HEPATIC FUNCTION [id number] 19:11:00* Test Item Value Reference Range Comments TOTAL PROTEIN (BEAKER) (test gagy=395) 7.2 gm/dL 6.0-8.3 ALBUMIN (BEAKER) (test pduh=8367) 4.1 g/dL 3.5-5.0 BILIRUBIN TOTAL (BEAKER) (test ksrx=418) 0.6 mg/dL 0.2-1.2 BILIRUBIN DIRECT (BEAKER) (test oudv=075) 0.2 mg/dL 0.1-0.5 ALKALINE PHOSPHATASE (BEAKER) (test qkbz=594) 82 U/L 40-150 AST (SGOT) (BEAKER) (test hxlj=299) 66 U/L 5-34 ALT (SGPT) (BEAKER) (test mjja=824) 121 U/L 6-55 CBC W/PLT COUNT & AUTO [id number] 18:48:00* Test Item Value Reference Range Comments WHITE BLOOD CELL COUNT (BEAKER) (test oabh=284) 8.2 K/ L 4.0-10.0 RED BLOOD CELL COUNT (BEAKER) (test vjac=247) 4.48 M/ L 4.00-5.00 HEMOGLOBIN (BEAKER) (test jgos=999) 14.4 GM/DL 12.0-15.0 HEMATOCRIT (BEAKER) (test nfnd=681) 43.7 % 36.0-45.0 MEAN CORPUSCULAR VOLUME (BEAKER) (test pglt=842) 97.6 fL 82.0-99.0 MEAN CORPUSCULAR HEMOGLOBIN (BEAKER) (test rzab=780) 32.1 pg 27.0-33.0 MEAN CORPUSCULAR HEMOGLOBIN CONC (BEAKER) (test tapf=734) 32.9 GM/DL 32.0-36.0 RED CELL DISTRIBUTION WIDTH (BEAKER) (test mkxc=736) 13.5 % 10.3-14.2 PLATELET COUNT (BEAKER) (test cszd=045) 190 K/CU MM 150-430 MEAN PLATELET VOLUME (BEAKER) (test lnga=045) 8.7 fL 6.5-10.5 NUCLEATED RED BLOOD CELLS (BEAKER) (test bqvz=602) 0 /100 WBC 0-0 NEUTROPHILS RELATIVE PERCENT (BEAKER) (test egas=529) 55 % LYMPHOCYTES RELATIVE PERCENT (BEAKER) (test hpym=004) 37 % MONOCYTES RELATIVE PERCENT (BEAKER) (test fzik=510) 5 % EOSINOPHILS RELATIVE PERCENT (BEAKER) (test nlde=535) 2 % BASOPHILS RELATIVE PERCENT (BEAKER) (test sgvu=371) 1 % NEUTROPHILS ABSOLUTE COUNT (BEAKER) (test yvtb=579) 4.52 K/ L 1.80-8.00 LYMPHOCYTES ABSOLUTE COUNT (BEAKER) (test jewx=294) 3.06 K/ L 1.48-4.50 MONOCYTES ABSOLUTE COUNT (BEAKER) (test nnir=251) 0.44 K/ L 0.00-1.30 EOSINOPHILS ABSOLUTE COUNT (BEAKER) (test brna=126) 0.14 K/ L 0.00-0.50 BASOPHILS ABSOLUTE COUNT (BEAKER) (test drgv=255) 0.08 K/ L 0.00-0.20 0.00
[2018-06-22] MEDS ORDERED: SODIUM CHLORIDE 0.9% 1000ML 1,000 ML IV STA (18:21)
[2018-06-22] MEDS ORDERED: ONDANSETRON HCL INJ 2 MG/ML VIAL IV STA (18:21)
[2018-06-22] MEDS ORDERED: PANTOPRAZOLE 40 MG 10ML VIAL IV STA (18:21)
[2018-06-22] MEDS ORDERED: METFORMIN HCL850 MG PO (18:45)
[2018-06-22] MEDS ORDERED: CITALOPRAM HBR20 MG PO (18:45)
[2018-06-22] MEDS ORDERED: LYRICA50 MG PO (18:45)
[2018-06-22] MEDS ORDERED: AMLODIPINE BESY10 MG PO (18:45)
[2018-06-22] MEDS ORDERED: VESICARE5 MG PO (18:45)
[2018-06-22] MEDS ORDERED: GLYBURIDE5 MG PO (18:45)
[2018-06-22] MEDS ORDERED: VASOTEC10 MG PO (18:45)
[2018-06-22 19:10] LABS: BASOPHILS % 0.2 % (0.0-1.0); EOSINOPHILS # (AUTO) 0.1 (0.0-0.4); EOSINOPHILS % 0.5 % (0.0-6.0); HEMATOCRIT 43.6 % (34.2-44.1); LYMPHOCYTES # (AUTO) 0.9 (1.0-3.2); LYMPHOCYTES % 9.4 % (18.0-39.1); MEAN CORPUSCULAR HEMOGLOBIN 31.8 pg (28-32); MEAN CORPUSCULAR HGB CONC 34.4 g/dL (31-35); MEAN CORPUSCULAR VOLUME 92.4 fL (81-99); MONOCYTES # (AUTO) 0.5 (0.2-0.8); NEUTROPHILS # (AUTO) 7.9 (2.1-6.9); NEUTROPHILS % 84.6 % (38.7-80.0); PLATELET COUNT 179 x10e3/uL (140-360); RED BLOOD COUNT 4.72 x10e6/uL (3.6-5.1); RED CELL DISTRIBUTION WIDTH 12.1 % (11.7-14.4)
[2018-06-22 19:15] LABS: INR 0.89; PROTHROMBIN TIME 12.9 seconds (11.9-14.5)
[2018-06-22 19:16] LABS: PARTIAL THROMBOPLASTIN TIME 27.9 seconds (23.8-35.5)
[2018-06-22 19:27] LABS: ALANINE AMINOTRANSFERASE 84 IU/L (0-55); ALBUMIN 4.1 g/dL (3.5-5.0); ALBUMIN/GLOBULIN RATIO 1.1 (0.8-2.0); ALKALINE PHOSPHATASE 129 IU/L (40-150); AMYLASE 31 U/L (25-125); ANION GAP 16.5 mmol/L (8-16); BLOOD UREA NITROGEN 13 mg/dL (7-26); BUN/CREATININE RATIO 17 (6-25); CALCIUM 9.3 mg/dL (8.4-10.2); CARBON DIOXIDE 26 mmol/L (22-29); CHLORIDE 94 mmol/L (98-107); CREATINE KINASE 60 IU/L (29-168); CREATININE, SERUM 0.77 mg/dL (0.57-1.11); EST GLOMERULAR FILTRATION RATE > 60 ML/MIN (60-); GLUCOSE 234 mg/dL (74-118); LIPASE 8 U/L (8-78); POTASSIUM 3.5 mmol/L (3.5-5.1); SODIUM 133 mmol/L (136-145)
[2018-06-22 19:36] LABS: BILIRUBIN,URINE NEGATIVE (NEGATIVE); CLARITY,URINE CLEAR (CLEAR); COLOR,URINE YELLOW (YELLOW); KETONES,URINE 1+ (NEGATIVE); LEUKOCYTE ESTERASE ,URINE NEGATIVE (NEGATIVE); NITRITE,URINE NEGATIVE (NEGATIVE); PROTEIN,URINE DIPSTICK 1+ (NEGATIVE); URINE UROBILINOGEN 1 mg/dL (0.2 - 1)
[2018-06-22 19:38] LABS: BACTERIA,URINE FEW /HPF; EPITHELIAL CELLS,URINE MANY /LPF
[2018-06-22 19:40] LABS: RBC,URINE 0-5 /HPF (0-5)
--- NOTE | 2018-06-22 19:52 | Diagnostic Imaging Report ---
EXAM: CHEST SINGLE (PORTABLE), AP 1 view INDICATION: Abdominal pain COMPARISON: None FINDINGS: LINES/TUBES: None LUNGS: No consolidations or edema. PLEURA: No effusions or pneumothorax. HEART AND MEDIASTINUM: Normal size and contour. BONES AND SOFT TISSUES: No acute findings. IMPRESSION: No acute thoracic abnormality. Signed by: Dr. Ashlee Fabian M.D. on 06/22/2018 7:48 PM
[2018-06-22] MEDS ORDERED: LIDOCAINE VISC 2% SOLN 15 ML UDC ONE (20:29)
[2018-06-22] MEDS ORDERED: BELLADONNA ALK/PHENOBARBITAL 5 ML UDC ONE (20:29)
[2018-06-22] MEDS ORDERED: MAGNESIUM/ALUMINUM/SIMETHICONE 30 ML UDC ONE (20:29)
[2018-06-22] MEDS ORDERED: DONNATAL/LIDOCAINE/MAALOX 30 ML SUSP PO ONE (20:30)
[2018-06-22] MEDS ORDERED: POTASSIUM CHLORIDE 20 MEQ TAB CR PO STA (20:55)
[2018-06-22] MEDS ORDERED: DIATRIZOATE MEGL/DIATRIZOA SOD 30 ML BTL PO ONE (21:41)
[2018-06-22] MEDS ORDERED: ONDANSETRON HCL INJ 2 MG/ML VIAL ONE (22:12)
--- NOTE | 2018-06-22 23:16 | Diagnostic Imaging Report ---
EXAM: CT ABDOMEN AND PELVIS without IV CONTRAST INDICATION: Severe epigastric pain COMPARISON: None TECHNIQUE: The abdomen and pelvis were scanned using a multidetector helical scanner. Coronal and sagittal reformations were obtained. Dose modulation, iterative reconstruction, and/or weight based adjustment of the mA/kV was utilized to reduce the radiation dose to as low as reasonably achievable. Routine protocol performed. IV Contrast: None Oral Contrast: Gastrografin CTDIvol has been reviewed. It is below the limits set by the Radiation Protocol Committee (RPC). FINDINGS: LOWER THORAX: Bibasilar atelectasis. LIVER: No masses BILIARY: The gallbladder is nonvisualized. No ductal dilation. SPLEEN: No masses PANCREAS: No masses ADRENALS: Right adrenal gland nodule measuring 1.2 cm measuring less than 10 Hounsfield units, consistent with an adenoma. Adjacent 1.2 cm right adrenal gland nodule containing fat consistent with an adenoma. RIGHT KIDNEY: No nephroureterolithiasis or hydronephrosis. LEFT KIDNEY: No nephroureterolithiasis or hydronephrosis. GI TRACT: No wall thickening or obstruction. Normal appendix. VESSELS: Minimal atherosclerotic changes of the abdominal aorta without aneurysm. PERITONEUM/RETROPERITONEUM: No free air or fluid LYMPH NODES: No lymphadenopathy REPRODUCTIVE ORGANS: Normal BLADDER: Normal SOFT TISSUES: Normal BONES: Grade 1 anterolisthesis L5 with respect S1 secondary to bilateral pars defects. IMPRESSION: No acute findings in the CT of the abdomen or pelvis. No bowel obstruction or appendicitis. Signed by: Dr. Ashlee Fabian M.D. on 06/22/2018 11:13 PM
== END 2018-06-22 23:44 | disposition home or self-care (01) ==
LOC: ER 17:04
DX: R11.2 Nausea with vomiting, unspecified (principal); R19.7 Diarrhea, unspecified; R10.84 Generalized abdominal pain; N39.0 Urinary tract infection, site not specified; I10 Essential (primary) hypertension; E11.9 Type 2 diabetes mellitus without complications; K21.9 Gastro-esophageal reflux disease without esophagitis
CPT/HCPCS: 36415; 71045; 74176; 80053; 81001; 82150; 82550; 82553; 82948; 83690; 83735; 84484; 85025; 85610; 85730; 93005; 99284; J2405; J7030; Q9663